=== PATIENT | male | born 1955 | race Caucasian/White ===

== ENCOUNTER 2023-01-09 07:13 | Day surgery (SDC) | payer MEDICARE, BC ==
[2023-01-09] MEDS ORDERED: Midazolam 1 MG/ML 2 ML SDV ONE (07:57)
[2023-01-09] MEDS ORDERED: fentaNYL 50 MCG/ML SDV ONE (07:57)
[2023-01-09] MEDS ORDERED: Propofol 200 MG/20 ML SDV ONE ×2 (07:57→08:35)
[2023-01-09] MEDS ORDERED: Sodium Chloride 0.9% 1,000 ML IV SCH (08:00)
== END 2023-01-09 10:05 | disposition home or self-care (01) ==
LOC: JP.SDS 07:13
PROVIDERS: ATTEND Surgery
DX: Z12.11 Encounter for screening for malignant neoplasm of colon (principal); K21.00 Gastro-esophageal reflux disease with esophagitis, without bleeding; K57.30 Diverticulosis of large intestine without perforation or abscess without bleeding; K29.70 Gastritis, unspecified, without bleeding; K63.5 Polyp of colon; I10 Essential (primary) hypertension; F90.9 Attention-deficit hyperactivity disorder, unspecified type; E78.5 Hyperlipidemia, unspecified; E11.9 Type 2 diabetes mellitus without complications; Z79.899 Other long term (current) drug therapy
CPT/HCPCS: 43239; 45380; 45385; 88305; 88342; J2250; J2704; J3010; J7030